=== PATIENT | female | born 1960 | race Caucasian/White ===

== ENCOUNTER 2025-01-18 21:40 | Emergency (ER) | payer OTHER, SELFPAY ==
[2025-01-18 21:51] VITALS: BP 168/101
[2025-01-19 00:58] VITALS: BMI 34.4
[2025-01-19 01:00] VITALS: BP 135/84
[2025-01-19 01:01] VITALS: BP 135/84
[2025-01-19 02:00] VITALS: BP 119/70
[2025-01-19] MEDS: TORADOL 15 MG IM (02:10)
--- NOTE | 2025-01-19 02:17 | ED.GENMED ---
History of Present Illness
General
Chief Complaint: DVT/Possible Blood Clot
Time Seen by Provider: 01/19/25 01:21
History of Present Illness
History of Present Illness:
64-year-old female presenting to the emergency department with left knee pain. Patient reports that symptoms started about 3 weeks ago. Denies any known injury or trauma. Pain is worse with ambulation. Denies any history of blood clots. Denies
any known history of arthritis. Denies any numbness or tingling to the leg. She has been taking aspirin for pain. Denies fever. Denies chest pain or difficulty breathing or additional acute medical complaints
Past History
Past History
ED Past Medical History: None
ED Past Surgical History: None
Social History
Tobacco: Non-smoker
Personal:
Living: with family
Phy Exam
Physical Exam
Physical Exam:
General: Well-appearing, no clinical signs of dehydration, nontoxic and in no acute distress
HEENT: protecting airway
Neck: appears supple
CV: Normal heart rate
Resp: No accessory muscle use, no increased work of breathing
Abd: No distention
Extremities: Mild swelling to the left knee at the suprapatellar region consistent with an effusion. Range of motion is grossly intact. Distal sensation and pulses intact. No erythema or warmth on palpation. Tenderness to the medial aspect of
the left knee. No tenderness to the popliteal region
Neuro: alert, no focal neurologic deficit
: deferred
Rectal: deferred
Psych: Normal affect
Skin: Intact
Course
Orders/Labs/Results
Orders:
Orders
01/18/25 21:54
US Legs, Left [US Periph Venous LOWER Ext LT] Urgent
Comment:
Reason For Exam: pain
01/18/25 22:23
CR Knee - Left 4 Or More View* Urgent
Comment:
Reason For Exam: pain
07/29/25 01:51
Ketorolac [Toradol] 15 mg IM NOW STA
Vital Signs
Initial and Last Documented VS:
Initial Vital Signs
Temp Pulse Resp BP Pulse Ox
97.7 F 100 16 168/101 97
01/18/25 21:51 01/18/25 21:51 01/18/25 21:51 01/18/25 21:51 01/18/25 21:51
Last Documented Vital Signs
Temp Pulse Resp BP Pulse Ox
97.7 F 85 18 119/70 99
01/18/25 21:51 01/19/25 01:01 01/19/25 01:01 01/19/25 02:00 01/19/25 01:46
MDM/Problems Addressed
MDM/Problems Addressed:
64-year-old female presenting to the emergency department with left knee pain. Vital signs are significant for high blood pressure, however improved without intervention.
On exam patient resting comfortably, no acute distress or discomfort. Mild swelling to left knee and suprapatellar region, consistent with an effusion. No report of direct trauma, no deformity with lower suspicion for fracture or malalignment.
X-ray obtained, no sign of fracture or dislocation. No present neurovascular compromise on examination, no infectious findings without warmth or erythema. Without concern for septic arthritis. Ultrasound obtained for rule out DVT. No evidence of
DVT. At this time suspect inflammation, possibly from arthritis or mild injury. Yordan bandage placed for compression. Advised NSAIDs for pain control and outpatient orthopedic follow-up. Return precautions discussed and patient verbalized
understanding.
*Pulse Oximetry
SaO2: 99
Oxygen Mode of Delivery: Room air
Patient hypoxic: no
*Critical Care Note
Total Time (30-74mins, 75-104mins- exclusive of procedures): Not Applicable
ED Attending Note
-
Portions of this chart may have been created with voice recognition software.� Occasional wrong word or��sound alike� substitutions may have occurred due to the inherent limitations of voice recognition software.
Discharge Plan
Departure
Patient Disposition: Home (Routine Discharge)
Date of Disposition: 01/19/25
Time of Disposition: 02:12
Patient with high blood pressure during this ER visit?: Yes
Condition: Good
Discharge Problem:
Knee pain, left, Effusion of left knee
Instructions: Knee Brace ED, Knee pain - ED discharge instructions
Prescriptions:
New
ibuprofen 600 mg tablet
600 mg PO Q8H PRN (Reason: Pain) Qty: 20 0RF
No Action
clindamycin HCl 300 MG capsule
300 mg PO QID Qty: 28 0RF
Referrals:
Nia Eduardo MD [Family Provider, Cardiology]
Tapan Robison MD [Active, Orthopedics]
Activity Restrictions/Additional Instructions:
You were seen in the emergency department for knee pain
You were found to have a normal ultrasound of your knee and x-ray. We suspect that you have inflammation to your knee joint. Please keep compression to the knee and take ibuprofen as needed for pain. Please also follow-up with the orthopedic
doctor
Please follow-up closely with your primary care physician.
Return to the emergency department for any worsening of your symptoms, or any development of chest pain, difficulty breathing, abdominal pain with persistent vomiting and inability to tolerate food or liquid by mouth (concern for dehydration),
weakness, headache or confusion, fever greater than 100.4, or any additional symptoms that are concerning to you.
Thank you for choosing [facility].
Interventions
Interventions:
*Risk Screen - Suicide Last Done: 01/18/25 21:51
*General Assessment Last Done: 01/18/25 21:51
*Neglect/Abuse Screening Last Done: 01/18/25 21:51
*ED- Fall Risk Assessment Last Done: 01/18/25 21:51
*ED COVID-19 Vaccine History Last Done: 01/18/25 21:51
ED- Cardiac Assessment Last Done: 01/19/25 01:05
ED- Pulmonary Assessment Last Done: 01/19/25 01:05
ED-Peripheral Vascular Assessment Last Done: 01/19/25 01:05
ED-Skin Assessment Last Done: 01/19/25 01:05
Discharge Date and Time
Print Language: IRISH
== END 2025-01-19 02:28 | disposition home or self-care (01) ==
LOC: EMR 21:40
PROVIDERS: EMERGENCY PHYSICIAN Student in an Organized Health Care Education/Training Program; FAMILY PHYSICIAN Internal Medicine Cardiovascular Disease
DX: M25.462 Effusion, left knee (principal)
CPT/HCPCS: 99284; 73564; 93971